=== PATIENT | male | born 1985 | race Caucasian/White ===

== ENCOUNTER 2017-05-21 19:41 | Emergency (ER) | payer OTHER ==
[~2017-05-21] VITALS: Ht 165.1 cm; Wt 100.0 kg
[~2017-05-21 19:41] MED LIST: HYDROCHLOROT25 MG PO; NAPROSYN500 MG PO; NORCO1 TA1 PO; PREDNISONE50 MG PO; SYMBICORT1 AE1 IN; ZPAK PO
[2017-05-21 21:41] LABS: IMMATURE GRANULOCYTES 0.4 % (0.0-1.0); MEAN CORPUSCULAR HGB 29.7 pG CALC (26.0-32.0); MEAN CORPUSCULAR HGB CONC 33.3 g/L CALC (32.0-36.0); NEUT# 5.77 thou/uL (1.82-7.42); RED BLOOD COUNT 4.72 mill/uL (4.70-6.10); RED CELL DISTRI WIDTH 13.4 % (11.5-15.5)
[2017-05-21 21:56] LABS: ALBUMIN 4.5 g/dL (3.2-5.0); ALKALINE PHOSPHATASE 103 u/l (38-126); ANION GAP 17 (6-22 (CALC)); BILIRUBIN, TOTAL 0.4 mg/dL (0.0-1.4); BUN 15 mg/dL (9-20); BUN/CREATININE RATIO 14 (12-20 (CALC)); CARBON DIOXIDE 26 mmol/l (22-30); CHLORIDE 104 mmol/l (95-108); CREATININE 1.1 mg/dL (0.7-1.3); GFR > 60 ML/MIN (>=60 (CALC)); GFR FOR AFR.AMER. > 60 ML/MIN (>=60 (CALC)); POTASSIUM 4.2 mmol/l (3.5-5.1); SGOT/AST 27 u/l (17-59); SGPT/ALT 38 u/l (21-72); SODIUM 143 mmol/l (137-146); TOTAL PROTEIN 6.9 g/dL (6.3-8.2)
[2017-05-22 01:09] VITALS: BP 139/89
== END 2017-05-22 01:10 | disposition home or self-care (01) | DRG 558 ==
LOC: ED 19:41
PROVIDERS: Emergency Medicine
PROC: 2W3QX1Z Immobilization of Right Lower Leg using Splint (ICD-10-PCS; principal; 2017-05-22)
DX: M71.161 Other infective bursitis, right knee (principal); M25.461 Effusion, right knee; M25.661 Stiffness of right knee, not elsewhere classified; Z98.890 Other specified postprocedural states
CPT/HCPCS: L1830; Q9967

== ENCOUNTER 2020-08-10 15:41 | Emergency (ER) | payer OTHER ==
[~2020-08-10] VITALS: Ht 165.1 cm; Wt 118.0 kg
[~2020-08-10 15:41] MED LIST changes: +LOPID600 MG PO
[2020-08-10 16:40] VITALS: BP 149/92
[2020-08-10] MEDS ORDERED: GABAPENTIN300 M2 PO (16:43)
[2020-08-10] MEDS ORDERED: INDERAL10 M1 PO (16:43)
[2020-08-10] MEDS ORDERED: VRAYLAR3 MG PO (16:43)
[2020-08-10] MEDS ORDERED: MELOXICAM7.5 MG PO (16:44)
[2020-08-10] MEDS ORDERED: LAMOTRIGINE150 MG PO (16:44)
[2020-08-10] MEDS ORDERED: OMEPRAZOLE DR20 MG PO (16:45)
[2020-08-10] MEDS ORDERED: PRAZOSIN HYDROCH1 MG PO (16:45)
[2020-08-10] MEDS ORDERED: OLANZAPINE5 MG PO (16:45)
[2020-08-10] MEDS ORDERED: PROAIR HFA108 MCG/AC IN (16:46)
== END 2020-08-10 16:40 | disposition home or self-care (01) ==
LOC: ED 15:41
DX: J06.9 Acute upper respiratory infection, unspecified (principal); I10 Essential (primary) hypertension; Z20.822 Contact with and (suspected) exposure to COVID-19